=== PATIENT | female | born 1960 | race American Indian/Alaskan Native ===

== ENCOUNTER 2016-10-09 11:22 | Emergency (ER) | payer MEDICARE, MEDICAID ==
[2016-10-09 12:09] VITALS: BP 167/85
--- NOTE | 2016-10-09 12:17 | EDM.PDOC ---
ED HPI RENAL/ - General Chief Complaint: Flank Pain Stated Complaint: LEFT SIDE RIB PAIN, LEFT THUMB ISSUE Time Seen by Provider: 10/09/16 12:06 Source: Reports: Patient, Family, RN notes reviewed History Limitations: Reports: No limitations - History of Present Illness INITIAL COMMENTS - FREE TEXT/NARRATIVE: 56-year-old female presents to emergency department a complaint of left flank pain, she states this awoke her at 5:00 this morning she had 3 episodes of sharp stabbing pain and now the pain has completely resolved she is pain-free at this time review of systems is otherwise negative - Related Data Allergies/ADRs: Allergies Allergy/AdvReac Type Severity Reaction Status Date / Time venom-honey bee Allergy Cannot Verified 10/09/16 11:37 [bee venom (honey bee)] Remember Home Meds: Home Meds Ca Citrate/Mgox/Vit D3/B6/Min [Calcium Citrate Plus Tablet] 1 each PO BID [History] Cholecalciferol (Vitamin D3) [Vitamin D] 1,000 unit PO DAILY 12/13/13 [History] Cyanocobalamin (Vitamin B-12) [Vitamin B-12] 2,000 mcg SL DAILY 12/13/13 [ History] Hydrocodone/Acetaminophen [Hydrocodon-Acetaminophn 10-325] 1 tab PO ASDIRECTED PRN 12/13/13 [History] EPINEPHrine [Epipen] 0.3 mg IM ASDIRECTED PRN 05/01/14 [History] Pregabalin [Lyrica] 150 mg PO TID 10/09/16 [History] Past Medical History Musculoskeletal History: Reports: Fibromyalgia - Past Surgical History GI Surgical History: Reports: Bariatric procedure, Cholecystectomy Musculoskeletal Surgical History: Reports: Other (see below) Other Musculoskeletal Surgeries/Procedures:: spinal stenosis Social & Family History - Tobacco Use Smoking Status *Q: Never Smoker - Caffeine Use Caffeine Use: Reports: Coffee, Soda - Recreational Drug Use Recreational Drug Use: No ED ROS GENERAL - Review of Systems Review Of Systems: See Below Constitutional: Reports: no symptoms Respiratory: Reports: no symptoms Cardiovascular: Reports: No symptoms GI/Abdominal: Reports: No symptoms : Reports: no symptoms Musculoskeletal: Reports: no symptoms Skin: Reports: no symptoms Neurological: Reports: no symptoms ED EXAM, RENAL/ - Physical Exam Exam: See Below Text/Narrative:: General: Female, not in any distress, alert and oriented x3 HEENT: head is atraumatic normocephalic, eyes pupils equal round reactive to light and accommodation sclera clear no conjunctivitis appreciated. Ears tympanic membranes clear and trinh landmarks and light reflex are present bilaterally canals are clear. Nose no septal deviation, nares are clear, no blood present. Mouth mucosa is moist and pink no erythema or exudate noted in soft palate, tongue is midline uvula is midline, dentition is poor. Neck: Supple no thyromegaly no tracheal deviation. Nodes: Cervical nodes subclavicular nodes nontender no palpable lymphadenopathy noted. Lungs: clear to auscultation bilaterally with symmetrical respirations, no adventitious noise appreciated. CV: Regular rate and rhythm S1 and S2 appreciated no murmurs rubs or gallops noted. Abdomen: Soft, nontender, no palpable masses or organomegaly appreciated, no distention no guarding bowel sounds are present, . Neuro: Cranial nerves II through XII grossly intact Skin: Warm and dry, intact Course - Vital Signs Last Recorded V/S: Last Vital Signs Temp 96.8 F 10/09/16 11:44 Pulse 65 10/09/16 11:44 Resp 13 10/09/16 11:44 BP 167/85 H 10/09/16 11:44 Pulse Ox 98 10/09/16 11:44 Departure - Departure Time of Disposition: 12:17 Disposition: Home, Self-Care 01 Condition: good Clinical Impression: Abdominal pain Qualifiers: Abdominal location: left upper quadrant Qualified Code(s): R10.12 - Left upper quadrant pain Forms: ED Department Discharge Additional Instructions: Please followup with your primary care provider in 3-5 days if not better, please call return to the emergency department with worsening of symptoms. - Assessment/Plan Plan: Assessment Acuity = acute Site and laterality = abdominal pain Etiology = unclear etiology now resolved Manifestations = none Location of injury = home Lab values = none Plan I had a discussion with her about about the differential for abdominal pain and further evaluation which may include blood work and image studies, she declined at this time will follow up with her primary care if the pain returns Patient was in agreement with the plan all questions were answered, they were instructed to return to the emergency department or call for worsening symptoms. This note was dictated using [employer] voice recognition software please call with any questions.
== END 2016-10-09 12:23 | disposition home or self-care (01) ==
LOC: JP.ED 11:22
DX: R10.12 Left upper quadrant pain (principal); Z79.899 Other long term (current) drug therapy; Z91.030 Bee allergy status
CPT/HCPCS: 99282; 99284

== ENCOUNTER 2022-06-12 13:50 | Emergency (ER) | payer MEDICARE, MEDICAID ==
[2022-06-12 14:21] VITALS: BP 155/74; PULSE 71
== END 2022-06-12 15:40 | disposition home or self-care (01) ==
LOC: JP.ED 13:50
DX: R19.5 Other fecal abnormalities (principal); I25.10 Atherosclerotic heart disease of native coronary artery without angina pectoris; I10 Essential (primary) hypertension; M79.7 Fibromyalgia; Z90.49 Acquired absence of other specified parts of digestive tract; Z91.030 Bee allergy status; Z79.899 Other long term (current) drug therapy
CPT/HCPCS: 99284

== ENCOUNTER → 2022-06-14 | Day surgery (SDC) | payer MEDICARE, MEDICAID ==
[~2022-06-14] MED LIST: Dextrose 5%-Lactated Ringers 1,000 ML IV SCH; Midazolam 1 MG/ML 2 ML SDV ONE; Propofol 200 MG/20 ML SDV ONE; fentaNYL 50 MCG/ML SDV ONE
[2022-06-14 12:57] VITALS: BP 129/56; PULSE 58
[2022-06-16 01:09] LABS: H. PYLORI BREATH TEST Positive (Negative)
== END ==
LOC: JP.SDS 07:15
PROVIDERS: ATTEND Surgery
DX: K92.1 Melena (principal); Z98.890 Other specified postprocedural states
CPT/HCPCS: 36415; 43239; 82728; 83013; 85027; 87081; J2250; J2704; J3010; J7121